=== PATIENT | male | born 1950 | race Caucasian/White ===

== ENCOUNTER 2023-06-02 15:33 | Emergency (ER) | payer MEDICARE, OTHER ==
[~2023-06-02] VITALS: Ht 177.8 cm; Wt 103.6 kg
[2023-06-02 16:08] VITALS: BP 162/118; RESP 20; O2SAT 95
[2023-06-02 16:09] VITALS: PULSE 117
== END 2023-06-02 19:22 | disposition left against medical advice (07) ==
LOC: ER 15:33
DX: I10 Essential (primary) hypertension (principal); Z53.21 Procedure and treatment not carried out due to patient leaving prior to being seen by health care provider
CPT/HCPCS: 93005